=== PATIENT | female | born 1995 | race Caucasian/White ===

== ENCOUNTER 2021-02-18 08:45 | Inpatient (IN) | payer MEDICAID, SELFPAY ==
[~2021-02-18] VITALS: Ht 160 cm; Wt 63.5 kg
[2021-02-18] MEDS ORDERED: PRETAB PO (09:05)
[2021-02-18] MEDS ORDERED: OXYTOCIN 20 UNITS in LACTATED RINGERS 1,000 ML IV SCH (09:05)
[2021-02-18] MEDS ORDERED: FERR325E14 PO (09:05)
[2021-02-18] MEDS ORDERED: NALBUPHINE 10 MG/ML AMP IVP PRN (09:05)
[2021-02-18] MEDS ORDERED: OSC500 PO (09:05)
[2021-02-18] MEDS ORDERED: PROMETHAZINE 25 MG/ML VIAL IVP PRN (09:05)
[2021-02-18] MEDS ORDERED: LACTATED RINGERS 500 ML IV ONE (09:05)
[2021-02-18 09:30] LABS: BASOPHILS # (AUTO) 0.1 K/uL (0.00-0.22); BASOPHILS % (AUTO) 1.2 % (0.0-2.0); EOSINOPHILS # (AUTO) 0.1 K/uL (0-0.4); EOSINOPHILS % (AUTO) 1.1 % (0.0-4.0); HEMATOCRIT 38.5 % (36-48); HEMOGLOBIN 13.1 g/dL (12.0-16.0); LYMPHOCYTES # (AUTO) 2.3 K/uL (2.5-16.5); LYMPHOCYTES % (AUTO) 27.6 % (20.5-51.1); MEAN CORPUSCULAR HEMOGLOBIN 31 pg (27-31); MEAN CORPUSCULAR HGB CONC 34 g/dL (33-37); MEAN CORPUSCULAR VOLUME 92.4 fL (80-94); MONOCYTES # (AUTO) 0.5 K/uL (0.8-1.0); MONOCYTES % (AUTO) 6.5 % (1.7-9.3); NEUTROPHILS # (AUTO) 5.2 K/uL (1.8-7.7); NEUTROPHILS % (AUTO) 63.6 % (42.2-75.2); PLATELET COUNT (AUTO) 234 K/uL (140-450); RED BLOOD CELL COUNT(AUTO) 4.17 MIL/uL (4.20-5.40); RED CELL DISTRIBUTION WIDTH 12.6 % (11.6-13.7); WHITE BLOOD COUNT (AUTO) 8.1 K/uL (4.8-10.8)
[2021-02-18 09:30] LABS: BILIRUBIN,URINE NEGATIVE (NEGATIVE); BLOOD, URINE NEGATIVE (NEGATIVE); COLOR,URINE YELLOW (YELLOW); LEUKOCYTE ESTERASE ,URINE 1+ (NEGATIVE); NITRITE, URINE NEGATIVE (NEGATIVE); PH,URINE 7.5 (5.0-9.0); UGLUCOSE NEGATIVE (NEGATIVE)
[2021-02-18 09:45] LABS: APPEARANCE,URINE HAZY (CLEAR)
[2021-02-18 09:47] LABS: RBC,URINE 0-5 /HPF (0-5)
[2021-02-18 09:52] LABS: ALBUMIN 2.5 g/dL (3.4-5.0); ANION GAP 13.7 (8-16); CARBON DIOXIDE 22.1 mmol/L (21-32); CREATININE 0.5 mg/dL (0.6-1.3); POTASSIUM 3.8 mmol/L (3.5-5.1); TOTAL BILIRUBIN 0.8 mg/dL (0.0-1.0)
[2021-02-18] MEDS: LACTATED RINGERS 1,000 ML IV SCH ×4 (10:23→20:05)
[2021-02-18] MEDS ORDERED: OXYTOCIN 20 UNITS/LR PREMIX 1,000 ML IV ONE (10:53)
[2021-02-18] MEDS ORDERED: MISOPROSTOL 25 MCG TAB VG SCH (12:00)
[2021-02-18] MEDS ORDERED: ROPIVACAINE 0.2%/NS PREMIX 200 ML EPI ONE (19:24)
[2021-02-19] MEDS ORDERED: TEMAZEPAM 15 MG CAP PO PRN (00:15)
[2021-02-19] MEDS ORDERED: oxyCODONE/APAP 5/325 MG 1 TAB TAB PO PRN (00:15)
[2021-02-19] MEDS ORDERED: METHYLERGONOVINE 0.2 MG/ML AMP IM PRN (00:15)
[2021-02-19] MEDS ORDERED: OXYTOCIN 10 UNITS/ML VIAL IM PRN (00:15)
[2021-02-19] MEDS ORDERED: METHYLERGONOVINE 0.2 MG TAB PO PRN (00:15)
[2021-02-19] MEDS ORDERED: MEASLES, MUMPS, AND RUBELLA 1 VIAL SQVAC ONE (00:15)
[2021-02-19] MEDS ORDERED: BENZOCAINE/MENTHOL 20%-0.5% 60 GM CAN TP PRN (00:15)
[2021-02-19] MEDS: IBUPROFEN 800 MG TAB PO PRN ×2 (06:59→12:22)
--- NOTE | 2021-02-19 08:47 | NUR ---
PATIENT HAS BEEN SCREENED AND CATEGORIZED LOW NUTRITION RISK. PATIENT WILL BE SEEN WITHIN 7 DAYS OF ADMISSION. 02/24/[address]
[2021-02-19 16:15] LABS: HEMOGLOBIN 12.1 g/dL (12.0-16.0)
[2021-02-19] MEDS: oxyCODONE/APAP 5/325 MG 1 TAB TAB PO PRN ×2 (18:09→22:55)
[2021-02-19 19:50] VITALS: BP 114/58
[2021-02-19] MEDS ORDERED: DOCUSATE SOD/SENNA 50/8.6 MG 1 TAB PO SCH (21:00)
[2021-02-19] MEDS ORDERED: DOCUSATE SODIUM 100 MG GELCAP PO ONE (22:49)
[2021-02-19] MEDS ORDERED: DOCUSATE SOD/SENNA 50/8.6 MG 1 TAB ONE (22:54)
[2021-02-20] MEDS: oxyCODONE/APAP 5/325 MG 1 TAB TAB PO PRN (02:54)
[2021-02-20] MEDS ORDERED: ceFAZolin 1,000 MG VIAL ONE (05:23)
[2021-02-20 06:07] LABS: HEMATOCRIT 36.2 % (36-48); HEMOGLOBIN 12.3 g/dL (12.0-16.0)
[2021-02-20 10:03] LABS: APPEARANCE,URINE CLEAR (CLEAR); BILIRUBIN,URINE NEGATIVE (NEGATIVE); BLOOD, URINE 3+ (NEGATIVE); COLOR,URINE YELLOW (YELLOW); LEUKOCYTE ESTERASE ,URINE 2+ (NEGATIVE); NITRITE, URINE POSITIVE (NEGATIVE); PH,URINE 7.5 (5.0-9.0); UGLUCOSE NEGATIVE (NEGATIVE)
[2021-02-20] MEDS: IBUPROFEN 800 MG TAB PO PRN ×2 (13:47→22:33)
[2021-02-20] MEDS ORDERED: ACETAMINOPHEN 325 MG TAB PO PRN (13:55)
[2021-02-21] MEDS: IBUPROFEN 800 MG TAB PO PRN (19:26)
[2021-02-21] MEDS: oxyCODONE/APAP 5/325 MG 1 TAB TAB PO PRN (21:18)
[2021-02-22] MEDS ORDERED: FERR325E14 PO (11:02)
[2021-02-22] MEDS ORDERED: IBUP-2213 PO (11:04)
== END 2021-02-22 12:30 | disposition home or self-care (01) | DRG 560 ==
LOC: MLD 08:45 → OBSVTOIN 08:45 → MFCC 02-19 06:35
PROVIDERS: ADMIT Obstetrics & Gynecology; ATTEND Obstetrics & Gynecology
PROC: 10E0XZZ Delivery of Products of Conception, External Approach (ICD-10-PCS; principal; 2021-02-19)
PROC: 0HQ9XZZ Repair Perineum Skin, External Approach (ICD-10-PCS; 2021-02-19)
PROC: 3E0R3BZ Introduction of Anesthetic Agent into Spinal Canal, Percutaneous Approach (ICD-10-PCS; 2021-02-19)
PROC: 00HU33Z Insertion of Infusion Device into Spinal Canal, Percutaneous Approach (ICD-10-PCS; 2021-02-19)
PROC: 3E0134Z Introduction of Serum, Toxoid and Vaccine into Subcutaneous Tissue, Percutaneous Approach (ICD-10-PCS; 2021-02-19)
DX: O70.0 First degree perineal laceration during delivery (principal); O86.21 Infection of kidney following delivery; Z20.822 Contact with and (suspected) exposure to COVID-19; Z37.0 Single live birth; Z3A.41 41 weeks gestation of pregnancy; Z23 Encounter for immunization
CPT/HCPCS: 36415; 51702; 59409; 76700; 80053; 81001; 85018; 85025; 86592; 86886; 86900; 86901; 87086; J0690; J2590; J2795; J7060; J7120